=== PATIENT | female | born 1970 | race Caucasian/White ===

== ENCOUNTER 2018-02-14 09:43 | Emergency (ER) | payer SELFPAY ==
[2018-02-14 09:50] VITALS: BP 107/59
--- NOTE | 2018-02-14 10:01 | ER Document Report ---
ED General - General Chief Complaint: Eye Problem Stated Complaint: EYE PAIN Time Seen by Provider: 02/14/18 09:59 Mode of Arrival: Ambulatory Information source: Patient Notes: Patient is a 47-year-old female who presents with right eyelid swelling and redness that started worsening last night. She endorses having a stye on her upper eyelid that started a week ago and last night she popped it and had yellow drainage subsequently. She woke up this morning and noticed that the swelling was worse. She does not wear contacts or glasses. She has not seen an eye doctor. She has not tried any medications for this. Denies any fever, chills, difficulty with movement of her eye, blurred vision or loss of vision. TRAVEL OUTSIDE OF THE [place] IN LAST 30 DAYS: No - Related Data Allergies/Adverse Reactions: No Known Allergies Allergy (Unverified 02/14/18 09:44) Past Medical History - General Information source: Patient - Social History Smoking Status: Current Every Day Smoker Family History: None Review of Systems - Review of Systems Constitutional: See HPI EENT: See HPI Cardiovascular: No symptoms reported Respiratory: No symptoms reported Gastrointestinal: No symptoms reported Genitourinary: No symptoms reported Female Genitourinary: No symptoms reported Musculoskeletal: No symptoms reported Skin: No symptoms reported Hematologic/Lymphatic: No symptoms reported Neurological/Psychological: No symptoms reported Physical Exam - Vital signs Vitals: Temp Pulse Resp BP Pulse Ox 98.2 F 72 18 107/59 L 98 02/14/18 09:46 02/14/18 09:46 02/14/18 09:46 02/14/18 09:46 02/14/18 09:46 - Notes Notes: PHYSICAL EXAM: CONSTITUTIONAL: Alert and oriented, well-appearing and in no acute distress. HENT: Normocephalic, atraumatic. Trachea midline. Uvula midline. Moist mucous membranes. EYES: Pupils equal round and reactive to light, EOM intact. Sclera anicteric, conjunctiva are normal. No entrapment. Right eye with upper and lower eyelid mild edema, conjunctivae erythematous without chemosis, palpable hordeolum to lateral upper lid. HEART: Regular rate and rhythm without murmurs. LUNGS: CTAB and equal. No wheezes, rales or rhonchi. EXTREMITIES: no bony tenderness, erythema, edema, ecchymosis or deformity. Normal range of motion, no pitting edema. No cyanosis. Cap Refill <3 seconds. NEURO: Cranial nerves grossly intact. Normal sensory/motor exams. PSYCH: Normal mood, normal affect. SKIN: Warm and dry. Normal turgor. No rashes or lesions noted. Course - Re-evaluation Re-evalutation: 02/14/18 10:01 Patient seen and evaluated. Visual acuity with 20/40 right eye, 20/40 left eye , 20/25 both. Extraocular movements intact, no entrapment. Exam consistent with chalazion with subsequent eyelid edema, low suspicion for orbital or preseptal cellulitis. Will treat with antibiotic eyedrops, given first dose here. Instructed to follow-up with ophthalmology. At this time, will discharge with return precautions and follow-up recommendations. Verbal discharge instructions given at the bedside and opportunity for questions given. Medication warnings reviewed. Patient is in agreement with this plan and has verbalized understanding of return precautions and the need for primary care follow-up in the next 24-72 hours. - Vital Signs Vital signs: Temp Pulse Resp BP Pulse Ox 98.2 F 72 18 107/59 L 98 02/14/18 09:46 02/14/18 09:46 02/14/18 09:46 02/14/18 09:46 02/14/18 09:46 Discharge - Discharge Clinical Impression: Bacterial conjunctivitis of right eye Hordeolum externum (stye) Qualifiers: Laterality: right Eyelid: upper Qualified Code(s): H00.011 - Hordeolum externum right upper eyelid Condition: Stable Disposition: HOME, SELF-CARE Additional Instructions: You have been given eyedrops. Your to use these for 5 days. For the first 2 days you are to use 1 eyedrop in right eye every 2 hours while awake. For days 3 through 5, you are to put 1 eyedrop in right eye every 4 hours while awake. We recommend that you follow-up with an eye doctor. Eyedrop Use Eyedrops are most easily applied by pulling down on the cheek just below the lower eyelid. The lower lid will pop out to form a pouch into which you can drop the medicine. A small brief sting is not unusual, especially if the eye is reddened and irritated already. Use the drops exactly as recommended. You should see the doctor at once if there is a decrease in vision, swelling of the eye, or an increase in discomfort. FOLLOW-UP CARE: If you have been referred to a physician for follow-up care, call the physician s office for an appointment as you were instructed or within the next two days. If you experience worsening or a significant change in your symptoms, notify the physician immediately or return to the Emergency Department at any time for re-evaluation.
[2018-02-14] MEDS ORDERED: CIPROFLOXACIN HCL 0.3% OPH SOLN 2.5 ML OD ONE (10:11)
== END 2018-02-14 10:23 | disposition home or self-care (01) ==
LOC: ER 09:43
DX: H10.9 Unspecified conjunctivitis (principal); B96.89 Other specified bacterial agents as the cause of diseases classified elsewhere; H00.011 Hordeolum externum right upper eyelid; F17.200 Nicotine dependence, unspecified, uncomplicated
CPT/HCPCS: 99283; J3490